=== PATIENT | female | born 1960 | race American Indian/Alaskan Native ===

== ENCOUNTER 2020-12-16 09:50 | Day surgery (SDC) | payer BC ==
[~2020-12-16 09:50] MED LIST: SODIUM CHLORIDE 0.9% 1000 ML 1,000 ML IV SCH
--- NOTE | 2020-12-16 11:13 | Anesthesia Day of Surgery ---
Anesthesia Day of Surgery - Day of Surgery Patient Examined: Yes Patient H&P Reviewed: Yes Patient is NPO: Yes
--- NOTE | 2020-12-16 11:14 | Anesthesia Consultation ---
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
[2020-12-16] MEDS ORDERED: ONDANSETRON 4 MG/2 ML INJ ONE (12:07)
[2020-12-16] MEDS ORDERED: propofoL 200 MG/20 ML VIAL IV ONE ×2 (12:07→12:19)
[2020-12-16] MEDS ORDERED: fentaNYL 100 MCG/2 ML INJ ONE (12:07)
[2020-12-16] MEDS ORDERED: LIDOCAINE MPF (2%) 20 MG/1 ML VIAL 5 ML ONE (12:07)
--- NOTE | 2020-12-16 12:51 | Procedure Note ---
Date of procedure: 12/16/20 Pre-op diagnosis: Abdominal Pain/ Colon Polyp Screening Post-op diagnosis: other (Mild to Moderate Erosive Esophagitis/ Gastritis/ No Pepic Ulcer noted/ No Colon Polyps noted/ Moderate, Left Colon Diverticuli/ Mild to moderate Internal Hemorrhoids) Procedure: EGD with biopsy/ Colonoscopy Anesthesia: BENITO Surgeon: ALL WOLF Estimated blood loss: minimal Pathology: list Specimen disposition: to lab Condition: stable Disposition: same day (Treat with PPI and encourage fiber intake; avoid aspirin , NSAID and anticoagulants for 4 days; otherwise resume home medcation and follow up in 1 to 2 weeks ([phone]).)
--- NOTE | 2020-12-16 13:42 | Operative Report ---
DATE OF SURGERY: 12/16/2020 INDICATIONS: This is a 60-year-old obese -[place] female with abdominal pain. EGD was done to make sure there was not any significant upper GI pathology or any associated peptic ulcer disease. DESCRIPTION OF PROCEDURE: Procedure was done after getting informed consent. The instrument was passed through the hypopharynx into the esophagus, which showed [id number] erosive esophagitis. The biopsy was done from the distal esophagus to assess for the severity of the erosive esophagitis. Stomach did not show any peptic ulcer disease, but there was some gastritis present and biopsy was done from the gastric antrum, gastric body and angular incisure to rule out for H. pylori and atrophic gastritis. The pylorus is patent. The duodenum in the first and second portion appeared normal. There was minimal bleeding from the biopsy sites. No complications associated with the procedure. ASSESSMENT: Abdominal pain, no peptic ulcer disease noted, [id number] erosive esophagitis, gastritis, patent pylorus. PLAN: To treat the patient with PPI, have the patient avoid aspirin and aspirin-related products for the next few days and to do a colonoscopy as part of colon polyp screening. Procedure was done in the GI lab with assistance of the GI lab team, which included the GI nurse, the technical training manager and with assistance of Anesthesia. TID: [id number] RECEIPT: [id number] JESUS
--- NOTE | 2020-12-16 14:12 | Operative Report ---
DATE OF SURGERY: 12/16/2020 INDICATIONS: This is a 60-year-old obese -[place] female who has been complaining of abdominal pain. Last colonoscopy was more than 10 years ago. She had an EGD done prior to the colonoscopy, which showed [id number] erosive esophagitis and gastritis, but no peptic ulcer disease. DESCRIPTION OF PROCEDURE: Colonoscopy was done as part of colon polyp screening. Initial rectal examination was unremarkable. The instrument was passed through the rectum onto the cecum, which was identified with ileocecal valve and the appendiceal orifice. The cecum was also visualized on the retroverted view. No additional pathology was noted. Cecum, ascending colon, transverse colon showed normal mucosa. There was some moderate diverticula, some medium deep, noted in the left colon. The rectum showed some [id number] internal hemorrhoid. Again, no colon polyps were noted. There was no biopsy done on the colonoscopy and no bleeding associated with this procedure. ASSESSMENT: Colon polyp screening, no colon polyps noted. Moderate left colon diverticula, [id number] internal hemorrhoid. PLAN: To encourage the patient to take fiber supplements. The patient will also be placed on PPI because of the EGD findings of esophagitis, which is mild to moderate in type, as well as gastritis. Await for the biopsy results. Further treatment adjustment will be according to the biopsies done in the stomach and the esophagus. POSTOPERATIVE PLAN: The patient will be asked to avoid aspirin and aspirin-related products for the next 4-5 days, otherwise resume home medication and follow up in the office in 1-2 weeks' time. The patient will also be encouraged to take fiber supplements because of her underlying diverticular disease. The procedure was done in the GI lab with the assistance of the GI lab team, which included the GI nurse, the biological science technician, with the assistance of anesthesia. TID: [id number] RECEIPT: [id number] LINDA/NITESH/ISABELLE
[2020-12-16 14:49] VITALS: BP 117/63
--- NOTE | 2020-12-16 15:46 | Post Anesthesia Evaluation ---
- Post Anesthesia Evaluation Patient Participated: Yes Airway Patent: Yes Stable Respiratory Function: Yes Nausea/Vomiting: No Temp > 96.8F: Yes Pain Manageable: Yes Adequeate Hydration: Yes Anesthesia Complications: No Block Receding Appropriately: Not Applicable Patient on Ventilator: No
== END 2020-12-16 09:51 | disposition home or self-care (01) ==
LOC: GIO 09:50
DX: R10.9 Unspecified abdominal pain (principal); K57.30 Diverticulosis of large intestine without perforation or abscess without bleeding; K64.0 First degree hemorrhoids; K63.89 Other specified diseases of intestine; K21.00 Gastro-esophageal reflux disease with esophagitis, without bleeding; K29.50 Unspecified chronic gastritis without bleeding; K31.89 Other diseases of stomach and duodenum; I10 Essential (primary) hypertension; Z90.710 Acquired absence of both cervix and uterus; Z98.890 Other specified postprocedural states; Z79.899 Other long term (current) drug therapy
CPT/HCPCS: 43239; 45378; 88305; 88342; J2405; J2704; J3010; J7030